=== PATIENT | male | born 1955 | race Caucasian/White ===

== ENCOUNTER → 2021-02-24 13:33 | Outpatient (CLI) | payer MEDICARE, SELFPAY ==
--- NOTE | ~2021-02-24 | XR_ITS ---
XR foot RT min 3V DATE: 02/24/2021 14:18 INDICATION: Right foot pain TECHNIQUE: 4 views COMPARISON: None FINDINGS: There is mild plantar and minimal posterior calcaneal enthesopathy without erosive change o r periostitis. There is osteoarthritis including particular spurring and joint space narrowing at the first metatars ophalangeal joint. No fracture or dislocation, periosteal reaction or bone destruction is detected. IMPRESSION: Osteophyte is at first metatarsophalangeal joint Plantar and minimal posterior calcaneal enthesopathy Reviewed, dictated and finalized at location B. AT TANKER [employer]IVER
== END ==
PROVIDERS: PCP Internal Medicine; Visit Provider Internal Medicine
DX: M77.31 Calcaneal spur, right foot (principal); M19.071 Primary osteoarthritis, right ankle and foot
CPT/HCPCS: 73630

== ENCOUNTER → 2022-01-20 11:18 | Outpatient (CLI) | payer MEDICARE, SELFPAY ==
--- NOTE | ~2022-01-20 | XR_ITS ---
EXAMINATION: XR chest 2V DATE: 01/20/2022 11:29 INDICATION: Shortness of breath and cough TECHNIQUE: PA and lateral views of the chest are obtained. COMPARISON: 12/03/2014 FINDINGS: There are minimal opacities of the lung bases. No pleural effusion or pneumothorax. Cardiom egaly is noted. There is moderate thoracic spondylosis. IMPRESSION: 1. Minimal opacities of the lung bases which could reflect atelectasis versus pneumonia versus pulmon patsy edema. There are two cardiomegaly. Reviewed, dictated and finalized at location F. NG INSTRUCTOR IMPRESSION: 1. Minimal opacities of the lung bases which could reflect atelectasis versus p neumonia versus pulmonary edema. There are two cardiomegaly.
== END ==
PROVIDERS: PCP Nurse Practitioner; Visit Provider Nurse Practitioner
DX: R06.02 Shortness of breath (principal)
CPT/HCPCS: 71046

== ENCOUNTER 2022-02-01 14:30 | Outpatient (CLI) | payer MEDICARE, SELFPAY ==
--- NOTE | 2022-02-02 13:33 | P.PCNPFT_ITS ---
PFT Procedure Performed PFT Procedure Performed Plethysmography (Lung Vol) Diffusing Cap (DLCO) Flow Vol Loop Spirometry w/o Bronchodil PFT Interpretation Lung volumes were measured with the body plethysmography method. Lung volumes are unremarkable. Spirometry showed diminished expiratory flow rates and a d iminished FEV1 to FVC ratio 45%, indicative of obstructive airway disease. No post bronchodilator study was carried out. Lung diffusion capacity is near normal at 72% predicted. The flow volume loop is consistent with obstructive airway disease. Impression: Moderately severe obstructive airway disease. Lung diffusion capacity borderline normal.
== END 2022-02-01 14:31 | disposition home or self-care (01) ==
PROVIDERS: PCP Nurse Practitioner; Visit Provider Nurse Practitioner
DX: R06.02 Shortness of breath (principal); R94.2 Abnormal results of pulmonary function studies
CPT/HCPCS: 94375; 94726; 94729

== ENCOUNTER 2022-02-05 09:32 | Outpatient (CLI) | payer MEDICARE, SELFPAY ==
--- NOTE | 2022-02-05 09:56 | ECHO_ITS ---
Patient Info Name: Mack Galloway Age: 66 years : 1955 Gender: Male Ht: 69 in Wt: 280 lbs BSA: 2.55 m2 HR: 82 bpm BP: 176 / 101 mmHg Technical Quality: Fair Exam Date: 02/05/2022 11:00 AM Exam Location: [facility] Patient Status: Outpatient Admit Date: 02/05/2022 Staff Ordering Physician: Elijah Palm APRN Clinical Systems Educator: Rocío Navas RCS Attending Provider: Elijah Palm APRN Referring Physician: Néstor CHEW; Exam Type: CA echo doppler color flow Study Info Indications - sob cardiomegaly on CXR Complete two-dimensional, color flow and Doppler transthoracic echocardiogram is performed. Summary 1. Complete two-dimensional, color flow and Doppler transthoracic echocardiogram is performed. 2. Left ventricular chamber dimension is mildly enlarged. 3. Left ventricular systolic function is normal, estimated at 55-60%. 4. Left ventricular septal wall motion is abnormal with septal motion related to bundle branch block. 5. The left ventricular diastolic function is grade II diastolic dysfunction. 6. E/e' 11 is mildly elevated. 7. Left atrial chamber dimension is moderately enlarged. 8. Right atrial chamber dimension is moderately enlarged. 9. There is moderate aortic valve sclerosis. 10. The mitral valve has mildly calcified annulus. 11. There is mild mitral valve regurgitation. 12. There is trace tricuspid valve regurgitation. 13. Mild pulmonary hypertension, estimated pulmonary arterial systolic pressure is 48 mmHg. 14. There is mild pulmonic regurgitation. Left Ventricle E/e' 11 is mildly elevated. Left ventricular chamber dimension is mildly enlarged. Left ventricular systolic function is normal, estimated at 55-60%. Left ventricular septal wall motion is abnormal with septal motion related to bundle branch block. The left ventricular diastolic function is grade II diastolic dysfunction. Right Ventricle Right ventricular systolic function is normal and with normal TAPSE 2.4 cm. Right ventricular chamber dimension is normal. Left Atria Left atrial chamber dimension is moderately enlarged. Right Atria Right atrial chamber dimension is moderately enlarged. Aortic Valve The aortic valve is trileaflet. There is moderate aortic valve sclerosis. There is no aortic valve stenosis. There is no aortic valve regurgitation. Pulmonic Valve There is mild pulmonic regurgitation. Mitral Valve The mitral valve has mildly calcified annulus. There is no mitral valve stenosis. There is mild mitral valve regurgitation. Tricuspid Valve There is trace tricuspid valve regurgitation. Mild pulmonary hypertension, estimated pulmonary arterial systolic pressure is 48 mmHg. Pericardium/Pleural There is no pericardial effusion. Inferior Vena Cava Normal inferior vena cava with >50% collapse upon inspiration consistent with normal right atrial pressure, 5 mmHg. Aorta The aortic root size at the sinus of Valsalva is normal. Left Ventricular Outflow Tract Name Value Normal LVOT 2D LVOT Diameter 2.1 cm LVOT Doppler LVOT Peak Gradient 6 mmHg
== END 2022-02-05 09:33 | disposition home or self-care (01) ==
LOC: ANHCARD 09:36
PROVIDERS: PCP Nurse Practitioner; Visit Provider Nurse Practitioner
DX: R06.02 Shortness of breath (principal); I08.3 Combined rheumatic disorders of mitral, aortic and tricuspid valves
CPT/HCPCS: 93306

== ENCOUNTER 2022-02-11 09:11 | Outpatient (CLI) | payer MEDICARE, SELFPAY ==
--- NOTE | 2022-03-11 13:56 | WPDSLEEPSTUD ---
Sleep Study Date of Study: 02/11/22 Ordering Provider: Luis Pino DO Interpreting Physician: Delaney Ibanez MD Sleep Study Type: Polysomnogram Height: 1.75 m Weight: 129.274 kg Body Mass Index: 42.0 Neck Circumference (inches): 20 [place]: 12 Reason for Sleep Study Hypersomnolence Sleep History Mack Galloway is a 66-year-old man with constant snoring that is often loud enough to bother others. Others have witnessed him not breathing at night. He wakes himself during the night when he stops breathing. He has excessive daytime sleepiness. He occasionally awakens at night with heartburn, belching or coughing. He frequently has trouble sleeping with a cold. He occasionally gasp for breath at night. He frequently has breathing problems at night reported to him by others. He occasionally sweats excessively at night. He never notices his heart pounding or beating irregularly at night. He frequently falls asleep during the day, frequently falls asleep involuntarily, never falls asleep while driving. He does not have loss of muscle tone with strong emotion. He does not have daytime difficulties due to excessive sleepiness. He does not feel paralyzed on waking or falling asleep. He does not have vivid dreamlike scenes on waking or falling asleep. He does not feel afraid to go to sleep. He does not have nightmares. He occasionally remembers his dreams. He does not have racing thoughts. He does not have feelings of sadness or depression. He rarely has anxiety. He does not have muscular tension. He does not notice parts of his body jerking. He does not kick at night. He does not have crawling or aching feelings in his legs. He rarely has any kind of leg pain at night. He does not have morning jaw pain. He does not grind his teeth at night. He occasionally is bothered by pain during the day, occasionally awakened by pain at night. He frequently wakes up feeling stiff in the morning with sore achy muscles. He occasionally wakes up with pain in the neck and spine. He has headaches. Normal bedtime is 8:30 p.m. falling asleep within minutes, waking twice at night to use the bathroom. He tries to return to sleep by resting quietly in bed. It may take him up to 1-1/2 hours to return to sleep. His normal wake time is 7:30 a.m.. He keeps a similar schedule on weekends, bedtime is 9:00 p.m. and wake time is 7:00 a.m.. He estimates getting 6 hours of sleep at night. He naps during the day. A short nap lasting 10 or 15 minutes is not refreshing. He is usually drowsy for 3 hours or longer after waking. Habits: No tobacco. Caffeine 2 cups of coffee a day. No alcohol or recreational drugs. [facility] Past Medical History Medical History (Updated 03/11/22 @ 14:28 by Delaney Ibanez MD) Hx of deep venous thrombosis Hyperlipidemia, unspecified Hypertension Impaired glucose tolerance Obstructive sleep apnea Polyarthritis Type 2 diabetes mellitus without complication, without long-term current use of insulin Surgical History Surgical History (Updated 03/11/22 @ 14:11 by Delaney Ibanez MD) S/P hernia surgery Family History Family History Sibling Patient's sister is in good health Mother Family history of diabetes mellitus in first degree relative Family history of heart disease in male family member before age 55 Father Family history of emphysema Other Diabetes mellitus Family history of cardiovascular disease Hypertension Social History Social History (Updated 01/20/22 @ 10:36 by Svetlana Yancey MA) Smoking packs per day: 2 Smoking cigarettes per day: 40.0 Years smoked: 40 Smoking pack-years: 80.00 Smoking status: Former smoker Tobacco type: cigarettes Second hand tobacco smoke exposure: No Smoking end date: 03/07/15 Alcohol intake: never Substance use: never Substance use type: does not use Lack of Transportation: No
[2022-03-11 14:35] VITALS: BMI 42.0
== END 2022-02-12 06:10 | disposition home or self-care (01) ==
LOC: ANHCSM 09:14
PROVIDERS: PCP Nurse Practitioner; Visit Provider Internal Medicine
DX: G47.33 Obstructive sleep apnea (adult) (pediatric) (principal); G47.10 Hypersomnia, unspecified; E78.5 Hyperlipidemia, unspecified; I10 Essential (primary) hypertension; E11.9 Type 2 diabetes mellitus without complications; Z87.891 Personal history of nicotine dependence
CPT/HCPCS: 95810

== ENCOUNTER 2022-03-23 08:52 | Outpatient (CLI) | payer MEDICARE, SELFPAY ==
--- NOTE | 2022-04-15 19:00 | WPDSLEEPSTUD ---
Sleep Study Date of Study: 03/23/22 Ordering Provider: Elijah Palm APRN Interpreting Physician: Delaney Ibanez MD Sleep Study Type: BiPAP Titration Height: 1.73 m Weight: 127.006 kg Body Mass Index: 42.5 Neck Circumference (inches): 20 [place]: 6 Reason for Sleep Study * 02/11/2022 shows severe obstructive sleep apnea with an apnea-hypopnea index of 86.7 with desaturation to 75%.? He presents for a full night PAP titration. Sleep History Mack Galloway is a 67-year-old man with constant snoring that is often loud enough to bother others, and he has had witnessed apneas. He wakes himself during the night when he stops breathing.? He has excessive daytime sleepiness.? He occasionally awakens at night with heartburn, belching or coughing. ? He frequently has trouble sleeping with a cold.? He occasionally gasp for breath at night.? He frequently has breathing problems at night reported to him by others.? He occasionally sweats excessively at night.? He never notices his heart pounding or beating irregularly at night.? He frequently falls asleep during the day, frequently falls asleep involuntarily, never falls asleep while driving.? He does not have loss of muscle tone with strong emotion.? He does not have daytime difficulties due to excessive sleepiness.? He does not feel paralyzed on waking or falling asleep.? He does not have vivid dreamlike scenes on waking or falling asleep.? He does not feel afraid to go to sleep.? He does not have nightmares.? He occasionally remembers his dreams.? He does not have racing thoughts.? He does not have feelings of sadness or depression.? He rarely has anxiety.? He does not have muscular tension.? He does not notice parts of his body jerking.? He does not kick at night.? He does not have crawling or aching feelings in his legs.? He rarely has any kind of leg pain at night.? He does not have morning jaw pain.? He does not grind his teeth at night.? He occasionally is bothered by pain during the day, occasionally awakened by pain at night.? He frequently wakes up feeling stiff in the morning with sore achy muscles.? He occasionally wakes up with pain in the neck and spine.? He has headaches. Normal bedtime is 8:30 p.m. falling asleep within minutes, waking twice at night to use the bathroom.? He tries to return to sleep by resting quietly in bed.? It may take him up to 1-1/2 hours to return to sleep.? His normal wake time is 7:30 a.m..? He keeps a similar schedule on weekends, bedtime is 9:00 p.m. and wake time is 7:00 a.m..? He estimates getting 6 hours of sleep at night. ? He naps during the day.? A short nap lasting 10 or 15 minutes is not refreshing.? He is usually drowsy for 3 hours or longer after waking. Habits: ? No tobacco.? Caffeine 2 cups of coffee a day.? No alcohol or recreational substances. [facility] Past Medical History Medical History COPD (chronic obstructive pulmonary disease) Hx of deep venous thrombosis Hyperlipidemia, unspecified Hypertension Impaired glucose tolerance Obesity Obstructive sleep apnea Personal history of nicotine dependence Polyarthritis Type 2 diabetes mellitus without complication, without long-term current use of insulin Surgical History Surgical History S/P hernia surgery Family History Family History Sibling Patient's sister is in good health Mother Family history of diabetes mellitus in first degree relative Family history of heart disease in male family member before age 55 Father Family history of emphysema Other Diabetes mellitus Family history of cardiovascular disease Hypertension Social History Social History Smoking packs per day: 2 Smoking cigarettes per day: 40.0 Years smoked: 40 Smoking pack-years: 80.00 Smoking status
[2022-04-15 19:30] VITALS: BMI 42.5
== END 2022-03-24 07:28 | disposition home or self-care (01) ==
LOC: ANHCSM 08:53
PROVIDERS: PCP Nurse Practitioner; Visit Provider Nurse Practitioner
DX: G47.33 Obstructive sleep apnea (adult) (pediatric) (principal); E78.5 Hyperlipidemia, unspecified; I10 Essential (primary) hypertension; J44.9 Chronic obstructive pulmonary disease, unspecified; Z86.718 Personal history of other venous thrombosis and embolism; E11.9 Type 2 diabetes mellitus without complications; E66.9 Obesity, unspecified; Z68.41 Body mass index [BMI] 40.0-44.9, adult; Z87.891 Personal history of nicotine dependence
CPT/HCPCS: 95811

== ENCOUNTER 2022-03-24 07:50 | Outpatient (CLI) | payer MEDICARE, SELFPAY ==
[2022-03-24 08:15] LABS: PCO2 ABG 51.8 mmHg (35.0-45.0); PO2 ABG 55.5 mmHg (80.0-100.0); pH ABG 7.393 (7.350-7.450)
[2022-03-24 08:16] LABS: Alveolar/Arterial O2 Gradient 32.2 mmHg; Base Excess ABG 4.4 mEq/l (+/-2.0); HCO3 ABG 30.9 mEq/l (22.0-26.0); Oxygen Content ABG 21.2 %vol (16.0-22.0); Oxygen Saturation ABG 88.3 % (95.0-100.0); Total Hemoglobin 17.2 g/dL (12.0-18.0)
[2022-03-24 08:25] LABS: Oxyhemoglobin 87.9 % THb (90.0-100.0)
[2022-03-24 08:26] LABS: Carboxyhemoglobin 1.3 % THb (0-2.0); Methemoglobin ABG 0.4 %THb (0-1.5); Reduced Hemoglobin 10.4 %THb (0-5.0)
[2022-03-24 08:27] LABS: Device ROOM AIR; Fractional Inspired Oxygen 21 %; Modified Allen's Test Pass; Site Drawn LEFT RADIAL
== END 2022-03-24 07:51 | disposition home or self-care (01) ==
PROVIDERS: PCP Nurse Practitioner; Visit Provider Nurse Practitioner
DX: R09.02 Hypoxemia (principal)
CPT/HCPCS: 36600; 82375; 82805; 83050

== ENCOUNTER 2022-04-02 08:57 | Outpatient (CLI) | payer MEDICARE, SELFPAY ==
--- NOTE | ~2022-04-02 | NM_ITS ---
EXAMINATION: NM rosita stress w perfusion DATE: 04/02/2022 11:51 INDICATION: Diastolic dysfunction. Other ill-defined heart disease. TECHNIQUE: Rest images were obtained following intravenous administration of 8.5 mCi Tc99m tetrofosmi n (Myoview). The patient was infused intravenously with Lexiscan (Regadenoson). Then, 27.7 mCi Tc99m tetrofosmin (Myoview) was administered intravenously, and stress images were obtained. Data was recon structed into short axis and horizontal and vertical long axis SPECT images. Gated SPECT images were also obtained. COMPARISON: None. FINDINGS: There is mild perfusion defect along the mid inferior and mid inferolateral on the stress w hich is more prominent on the rest images and a borderline perfusion defect on the stress but not the rest images at the inferoapical segment. There is normal left ventricular chamber size, wall motion and ejection fraction. Left ventricular ejection fraction measures 66%. IMPRESSION: 1. Mild perfusion defects along the mid inferior and mid inferolateral wall more prominent on the res t images and equivocal mild perfusion defect inferoapical segment which could represent small regions of infarct and mild ischemia respectively or more likely diaphragmatic attenuation artifact. 2. Left ventricular ejection fraction measuring 66%. Reviewed, dictated and finalized at location B. ECTIONAL SERGEANT IMPRESSION: 1. Mild perfusion defects along the mid inferior and mid inferolateral wall mor e prominent on the rest images and equivocal mild perfusion defect inferoapical segment which could represent small regions of infarct and mild ischemia respe ctively or more likely diaphragmatic attenuation artifact. 2. Left ventricular ejection fraction measuring 66%.
--- NOTE | 2022-04-02 09:14 | EST_ITS ---
Patient Info Name: Mack Galloway Age: 67 years : 1955 Gender: Male Ht: 68 in Wt: 280 lbs BSA: 2.53 m2 HR: 77 bpm BP: 141 / 86 mmHg Heart Rhythm: Sinus Rhythm Exam Date: 04/02/2022 9:59 AM Exam Location: [facility] Stress Patient Status: Outpatient Admit Date: 04/02/2022 Staff Ordering Physician: Cam Swan DO Attending Provider: Cam Swan DO Exercise Technologist: Misti Ly CT Exercise Physician: Cam Swan DO Exam Type: CA stress rosita w NM Study Info Indications R06.02 - Shortness of breath A regadenoson stress test was performed. Summary 1. 1. Negative lexiscan stress test for ischemic ST changes by ECG criteria. 2. 2. Baseline hypertension. 3. 3. Nuclear scan to follow and will be reported separately. Please correlate with it. 4. 4. Patient informed of the above results. Protocol: Lexiscan Stress ECG Details Stage: REST Duration (min): 1 min : 5 sec HR (bpm): 80 SBP (mmHg): 141 DBP (mmHg): 86 Stage: REST Duration (min): 7 min : 29 sec HR (bpm): 81 SBP (mmHg): 141 DBP (mmHg): 86 Stage: STAGE 1 Duration (min): 0 min : 59 sec HR (bpm): 96 SBP (mmHg): 153 DBP (mmHg): 72 Stage: RECOVERY Duration (min): 1 min : 0 sec HR (bpm): 100 SBP (mmHg): 153 DBP (mmHg): 72 Stage: RECOVERY Duration (min): 2 min : 0 sec HR (bpm): 96 SBP (mmHg): 153 DBP (mmHg): 72 Stage: RECOVERY Duration (min): 3 min : 0 sec HR (bpm): 91 SBP (mmHg): 130 DBP (mmHg): 72 Stage: RECOVERY Duration (min): 3 min : 12 sec HR (bpm): 94 SBP (mmHg): 130 DBP (mmHg): 72 Rest HR: 81 bpm Peak HR: 100 bpm Rest Sys BP: 141 mmHg Peak Sys BP: 153 mmHg Max Pred HR: 153 bpm % Max Pred HR: 65 % Target HR: 130 bpm Max RPP: 15,300 bpm*mmHg Termination Reason: Completed protocol Cardiac Symptoms: Shortness of breath Total Time: 1 min : 0 sec Rest Koenig BP: 86 mmHg Peak Koenig BP: 72 mmHg Total Dose: 0.4 mg Resting ECG Sinus rhythm, RBBB. Stress ECG No ST changes. Arrhythmias None. Report Signatures
== END 2022-04-02 08:58 | disposition home or self-care (01) ==
PROVIDERS: PCP Internal Medicine; Visit Provider Internal Medicine Cardiovascular Disease
DX: I51.89 Other ill-defined heart diseases (principal)
CPT/HCPCS: 78452; 93017; A9502; J2785

== ENCOUNTER 2022-04-22 07:56 | Outpatient (CLI) | payer MEDICARE, SELFPAY ==
[2022-04-22 08:30] VITALS: PULSE 90; O2SAT 91
[2022-04-22 08:33] VITALS: PULSE 111; O2SAT 86
[2022-04-22 08:34] VITALS: O2SAT 87
[2022-04-22 08:35] VITALS: O2SAT 90
[2022-04-22 08:45] VITALS: PULSE 93; O2SAT 91
--- NOTE | 2022-04-22 09:17 | HOMEO2EVAL ---
Evaluation was performed at [facility] Home Oxygen Evaluation RC: Home Oxygen (O2) Evaluation Start: 04/22/22 09:14 Freq: Status: Active Protocol: RPE Activity Type Activity Date Activity User E-sign Co-sign Detail Recorded Client Recorded Date Recorded By Document 04/22/22 08:30 JADEN [email or web address] 04/22/22 09:17 JADEN Document 04/22/22 08:33 JADEN [email or web address] 04/22/22 09:17 JADEN Document 04/22/22 08:34 JADEN [email or web address] 04/22/22 09:17 JADEN Document 04/22/22 08:35 JADEN [email or web address] 04/22/22 09:17 JADEN Document 04/22/22 08:45 JADEN [email or web address] 04/22/22 09:17 JADEN 04/22/22 04/22/22 04/22/22 08:30 08:33 08:34 Home O2 Evaluation [Oxygen] -Test Phase Resting Exercise Exercise -Oxygen Delivery Room Air Room Air Nasal Cannula -Oxygen Flow Rate (L/min) 1 [Pulse Oximetry] -Pulse Oximetry (90-100 %) 91 86 L 87 L [Pulse Rate] -Pulse Rate (60-100 beats/min) 90 111 H [Exercise] -Ambulation Distance (feet) -Ambulation Distance (meters) [Comments] -Home Oxygen Evaluation Comments [Charges] -Treatment Charges O2 Evaluation - Outpatient 04/22/22 04/22/22 08:35 08:45 Home O2 Evaluation [Oxygen] -Test Phase Exercise Resting -Oxygen Delivery Nasal Cannula Room Air -Oxygen Flow Rate (L/min) 2 [Pulse Oximetry] -Pulse Oximetry (90-100 %) 90 91 [Pulse Rate] -Pulse Rate (60-100 beats/min) 93 [Exercise] -Ambulation Distance (feet) 600 -Ambulation Distance (meters) 182.87 [Comments] -Home Oxygen Evaluation Comments Pt requires 2 Liters O2 with activity [Charges] -Treatment Charges
--- NOTE | 2022-04-22 09:18 | PCRCNOTE ---
Home O2 eval complete. Faxed results to office staff for DME set-up. Pt stated he is in process of getting a home CPAP unit. Noted on fax to use same DME company
== END 2022-04-22 07:57 | disposition home or self-care (01) ==
PROVIDERS: PCP Nurse Practitioner; Visit Provider Physician Assistant
DX: J44.9 Chronic obstructive pulmonary disease, unspecified (principal)
CPT/HCPCS: 94618

== ENCOUNTER 2022-04-22 07:58 | Outpatient (CLI) | payer MEDICARE, SELFPAY ==
--- NOTE | ~2022-04-22 | CT_ITS ---
EXAMINATION: CT diagnostic chest wo con DATE: 04/22/2022 08:59 INDICATION: COPD TECHNIQUE: Computed tomography (CT) of the chest was performed without intravenous contrast. The dose -length product (DLP) was 654.48 mGy-cm. Automated exposure control and iterative reconstruction tech Human [employer] were employed. COMPARISON: 01/15/2015 FINDINGS: There is a stable 4 mm nodule of the right middle lobe. There is a stable 3 mm nodule of th e right lower lobe. No pleural effusion or pneumothorax. There is mild atelectasis of the right lower lobe. No pathologically enlarged thoracic lymph nodes are identified. The heart size is normal. Calc ified coronary artery atherosclerosis is noted. There is mild thoracic spondylosis. IMPRESSION: 1. Mild atelectasis of the right lung. Reviewed, dictated and finalized at location A. RIAL ANALYST
== END 2022-04-22 07:59 | disposition home or self-care (01) ==
PROVIDERS: PCP Nurse Practitioner; Visit Provider Physician Assistant
DX: J44.9 Chronic obstructive pulmonary disease, unspecified (principal); G47.33 Obstructive sleep apnea (adult) (pediatric); Z87.891 Personal history of nicotine dependence; R91.8 Other nonspecific abnormal finding of lung field
CPT/HCPCS: 71250; 94618

== ENCOUNTER 2022-07-16 09:54 | Emergency (ER) | payer MEDICARE, SELFPAY ==
[2022-07-16] VITALS (13 sets, daily range): BP systolic 110–171; BP diastolic 63–102; PULSE 80–184; RESP 11–25; TEMP 36.8; O2SAT 92–97
--- NOTE | ~2022-07-16 | XR_ITS ---
EXAMINATION: XR chest 2V 07/16/2022 10:50 INDICATION: Tachycardia. PROCEDURE: 2 view chest COMPARISON: 01/20/2022 FINDINGS: The lungs are clear. The cardiomediastinal silhouette is within normal limits. There are no pleural effusions. There is no pneumothorax suspected. IMPRESSION: 1: NO ACUTE CARDIOPULMONARY DISEASE. Reviewed, dictated and finalized at location B.
--- NOTE | 2022-07-16 10:04 | ECG_ITS ---
Measurements Intervals [place] Rate: 176 P: HI: 0 QRS: 183 QRSD: 109 T: -14 QT: 256 QTc: 439 Interpretive Statements SUPRAVENTRICULAR TACHYCARDIA LOW QRS VOLTAGE IN PRECORDIAL LEADS INCOMPLETE RIGHT BUNDLE BRANCH BLOCK BORDERLINE ST-T WAVE ABNORMALITY- ANT/INF LEADS BASELINE ARTIFACT- I, II, III, AVR, AVF, V3 ABNORMAL ECG NO PREVIOUS ECG AVAILABLE FOR COMPARISON Electronically Signed On 07-16-2022 10:08:25 CDT by Cam Swan D.O.
--- NOTE | 2022-07-16 10:04 | ECG_ITS ---
Measurements Intervals [place] Rate: 102 P: MI: 0 QRS: 250 QRSD: 110 T: 5 QT: 344 QTc: 450 Interpretive Statements SINUS TACHYCARDIA ATRIAL COUPLET AND FREQUENT ATRIAL PREMATURE COMPLEXES RIGHT AXIS DEVIATION PATTERN CONSISTENT WITH PULMONARY DISEASE INCOMPLETE RIGHT BUNDLE BRANCH BLOCK BASELINE ARTIFACT- I, II, III, AVR, AVF ABNORMAL ECG COMPARED TO ECG 07/16/2022 09:59:35 SINUS TACHYCARDIA NOW PRESENT Electronically Signed On 07-16-2022 10:36:04 CDT by Cam Swan D.O.
[2022-07-16 10:20] LABS: Basophils Absolute Auto 0.1 K/mm3 (0.0-0.1); Basophils Percent Auto 0.9 % (0.2-1.2); Eosinophils Absolute Auto 0.3 K/mm3 (0-0.3); Hematocrit 42.4 % (42.0-52.0); Hemoglobin 14.3 g/dL (14.0-18.0); Immature Granulocyte Absolute 0.06 K/mm3 (0.00-0.031); Immature Granulocyte Percent A 0.7 % (0-0.5); Mean Corpuscular HGB Conc 33.7 g/dl (32-36); Mean Corpuscular Hemoglobin 29.7 pg (26-34); Mean Corpuscular Volume 88.1 fl (80-100); Mean Platelet Volume 10.5 fl (7.4-10.4); Monocytes Absolute Auto 0.9 K/mm3 (0.1-0.6); Monocytes Percent Auto 10.8 % (2.6-8.5); Neutrophils Absolute Auto 5.6 K/mm3 (1.3-6.7); Neutrophils Percent Auto 67.6 % (45.5-73.1); Platelet Count Result 207 k/mm3 (150-375); Red Blood Count 4.81 M/mm3 (4.6-6.20); White Blood Count 8.2 K/mm3 (4.5-10.0)
--- NOTE | 2022-07-16 10:21 | PC.NURSE ---
EDP Mehdi in room. Attempted valsalva maneuver without success, hear rate still in 190s. Per EDP Mehdi verbal order read back, give 6mg Adenosine IVP.
--- NOTE | 2022-07-16 10:25 | PC.NURSE ---
Heart rate increased following initial 6mg Adenosine. 12mg Adenosine given per verbal order read back via EDP Mehdi
[2022-07-16 10:29] LABS: Prothrombin Time 13.6 Seconds (11.1-14.7)
--- NOTE | 2022-07-16 10:29 | ED.ARRPALP ---
HPI - Arrhythmia/Palpitations General Chief Complaint: Arrhythmia/Palpitations Stated Complaint: irregular heart beat. Time Seen by Provider: 07/16/22 10:15 History of Present Illness HPI narrative: 67-year-old male presented the emergency department for evaluation of tachycardia. Patient was at his pulmonology office when he was found to have a heart rate in the 170s. Heart rate remained in the 170s during his entire visit and patient was transferred down to the emergency department. On arrival to the ED patient initial EKG did show evidence of supraventricular tachycardia. Patient states this morning he was having some increased shortness of breath and was breathing heavier but denied any associated chest pain with this. Denies any prior history of coronary disease. Patient does have a stress test back in March does follow-up with Dr. Swan. Related Data Home Medications Medication Instructions Recorded Confirmed aspirin 81 mg tablet,delayed 81 mg PO DAILY 12/14/19 07/16/22 release (Adult Aspirin Regimen) Allergies Allergy/AdvReac Type Severity Reaction Status Date / Time Penicillins Allergy Unknown Unknown Verified 07/16/22 08:53 Review of Systems Review of Systems: All systems reviewed & are unremarkable except as noted in HPI and below PMFSH Past Medical History Medical History COPD (chronic obstructive pulmonary disease) Hx of deep venous thrombosis Hyperlipidemia, unspecified Hypertension Impaired glucose tolerance Obesity Obstructive sleep apnea Personal history of nicotine dependence Polyarthritis Type 2 diabetes mellitus without complication, without long-term current use of insulin Surgical History Surgical History S/P hernia surgery Family History Family History Sibling Patient's sister is in good health Mother Family history of diabetes mellitus in first degree relative Family history of heart disease in male family member before age 55 Father Family history of emphysema Other Diabetes mellitus Family history of cardiovascular disease Hypertension Social History Social History Smoking packs per day: 2 Smoking cigarettes per day: 40.0 Years smoked: 40 Smoking pack-years: 80.00 Smoking status: Former smoker Tobacco type: cigarettes Second hand tobacco smoke exposure: No Smoking end date: 03/07/15 Alcohol intake: never Substance use: never Substance use type: does not use Lack of Transportation: No Lack of Food: Never True Current Housing: I Have Housing Concerned About Future Housing: No Difficulty Paying Gas/Electric Bills: No Difficulty Paying for Meds: No Currently Unemployed: No Education: High School Diploma/GED Difficulty w/ Childcare or Family Care: No Exam Narrative: APPEARANCE: Well appearing, no pain, no distress, well-nourished. HEAD: normocephalic, atraumatic. EYES: PERRLA/EOMI, conjunctivae clear. NOSE: Normal no drainage EARS:TMS clear with good light reflex. THROAT: Pharynx clear, no exudate. NECK: Supple. No adenopathy, no masses. RESPIRATORY: Airway patent, respirations nonlabored. Clear to auscultation bilaterally, no rales, rhonchi, wheezing. CARDIOVASCULAR: Regular rhythm in the 170s ABDOMINAL: Soft, nontender, nondistended, normal bowel sounds MUSCULOSKELETAL: Moves all extremities. Strength/ROM intact, No edema, No calf tenderness. NEURO: Alert. Cranial nerves II through XII intact. Grossly intact SKIN: Warm, dry. Normal Color Course Course Emergency Course: Attempted cardioversion with modified Valsalva without success. Patient was treated with 6 mg of IV Adenocard and did have a brief transition back to a normal sinus. Patient was then treated with 12 mg of IV Adenoca
[2022-07-16 10:30] LABS: Alanine Aminotransferase 28 U/L (6-50); Albumin Level 4.5 g/dL (3.5-5.1); Alkaline Phosphatase 91 U/L (38-126); Anion Gap 9 mmol/L (8-16); Aspartate Amino Transferase 23 U/L (17-59); Bilirubin,Total 0.7 mg/dL (0.2-1.3); Blood Urea Nitrogen 32 mg/dL (9-20); Calcium 9.8 mg/dL (8.4-10.2); Carbon Dioxide 28 mmol/L (22-30); Chloride 100 mmol/L (98-107); Estimated CRCL calculation 96 ml/min; Estimated Glomerular Filt Rate > 60; Glucose 145 mg/dL (65-110); Lipase 98 U/L (23-300); Partial Thromboplastin Time 33.7 SECONDS (22.3-36.8); Potassium 4.6 mmol/L (3.4-5.0); Sodium 137 mmol/L (137-145)
[2022-07-16] MEDS: ASPIRIN 81 MG CHEWABLE TABLET 324 MG PO (10:34)
[2022-07-16] MEDS: METOPROLOL SUCCINATE EXT REL 25 MG TABCR PO (11:19)
== END 2022-07-16 12:10 | disposition home or self-care (01) ==
PROVIDERS: Emergency Provider Emergency Medicine; PCP Internal Medicine
DX: I47.1 Supraventricular tachycardia (principal); R06.02 Shortness of breath; J44.9 Chronic obstructive pulmonary disease, unspecified; E11.9 Type 2 diabetes mellitus without complications; E78.5 Hyperlipidemia, unspecified; I10 Essential (primary) hypertension; G47.33 Obstructive sleep apnea (adult) (pediatric); M19.90 Unspecified osteoarthritis, unspecified site; E66.9 Obesity, unspecified; Z68.41 Body mass index [BMI] 40.0-44.9, adult; Z86.718 Personal history of other venous thrombosis and embolism; Z87.891 Personal history of nicotine dependence; Z79.82 Long term (current) use of aspirin; Z79.84 Long term (current) use of oral hypoglycemic drugs; R00.8 Other abnormalities of heart beat; I49.1 Atrial premature depolarization; I45.10 Unspecified right bundle-branch block; R94.31 Abnormal electrocardiogram [ECG] [EKG]
CPT/HCPCS: 36415; 71046; 80053; 83690; 84484; 85025; 85610; 85730; 93005; 99284; A9270; J0153; J7030

== ENCOUNTER 2022-10-21 08:02 | Outpatient (CLI) | payer MEDICARE, SELFPAY ==
--- NOTE | 2022-10-21 09:17 | PCRCNOTE ---
Home o2 eval not completed, patient resting heart rate 180s. Sent patient to ER, Pulmonary office notified, confirmed with Jc Vivas
== END 2022-10-21 08:03 | disposition home or self-care (01) ==
PROVIDERS: PCP Family Medicine; Visit Provider Physician Assistant
DX: J44.9 Chronic obstructive pulmonary disease, unspecified (principal); Z53.09 Procedure and treatment not carried out because of other contraindication
CPT/HCPCS: 99199

== ENCOUNTER 2022-10-21 09:05 | Emergency (ER) | payer MEDICARE, SELFPAY ==
[2022-10-21] VITALS (25 sets, daily range): BP systolic 101–205; BP diastolic 53–134; PULSE 76–180; RESP 12–31; TEMP 37; O2SAT 93–98
--- NOTE | 2022-10-21 09:14 | ECG_ITS ---
Measurements Intervals [place] Rate: 179 P: [place]: 0 QRS: 163 QRSD: 109 T: -1 QT: 213 QTc: 368 Interpretive Statements SUPRAVENTRICULAR TACHYCARDIA, SUSPECT RAPID ATRIAL FLUTTER RIGHT BUNDLE BRANCH BLOCK [120+ ms QRS DURATION, UPRIGHT V1, 40+ ms S IN I/aVL/V4/V5/V6] LEFT POSTERIOR FASCICULAR BLOCK [QRS AXIS > 109, INFERIOR Q] ABNORMAL ECG COMPARED TO ECG 07/16/2022 10:30:23 RAPID ATRIAL FLUTTER REPLACES SINUS RHYTHM Electronically Signed On 10-21-2022 13:20:35 CDT by Kristofer Germain M.D.
[2022-10-21] MEDS: ADENOSINE IV SOLN 6 MG/2 ML VIAL 18 MG (09:20)
--- NOTE | 2022-10-21 09:28 | ECG_ITS ---
Measurements Intervals [place] Rate: 109 P: [place]: 0 QRS: 233 QRSD: 114 T: 35 QT: 333 QTc: 450 Interpretive Statements SINUS RHYTHM WITH FREQUENT PACS INDETERMINATE AXIS RIGHT BUNDLE BRANCH BLOCK [120+ ms QRS DURATION, UPRIGHT V1, 40+ ms S IN I/aVL/V4/V5/V6] COMPARED TO ECG 10/21/2022 09:12:50 SINUS RHYTHM REPLACES ATRIAL FLUTTER Electronically Signed On 10-21-2022 13:21:27 CDT by Kristofer Germain M.D.
--- NOTE | 2022-10-21 09:28 | ED.ARRPALP ---
HPI - Arrhythmia/Palpitations General Chief Complaint: Arrhythmia/Palpitations <Nely Castorena PA-C - Last Filed: 10/21/22 11:13> Stated Complaint: HEART RATE 180'S FROM PFT LAB <MADELYN Burrell Last Filed: 10/21/22 11:13> Time Seen by Provider: 10/21/22 09:14 <MADELYN Burrell Last Filed: 10/21/22 11:13> Source: patient <MADELYN Burrell Last Filed: 10/21/22 11:13> Mode of arrival: ambulatory <MADELYN Burrell Last Filed: 10/21/22 11:13> Limitations: no limitations <MADELYN Burrell Last Filed: 10/21/22 11:13> History of Present Illness HPI narrative: This is a 67-year-old male that presents to the emergency department for elevated heart rate. 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 He is not overly symptomatic with this. He does report it feels like his heart is fluttering. He also reports some mild nausea. He has had 1 prior episode like this for which she was seen in the emergency department. 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 Denies any chest pain or shortness of breath. <Nely Castorena PA-C - Last Filed: 10/21/22 11:13> Related Data Home Medications: Home Medications Medication Instructions Recorded Confirmed aspirin 81 mg tablet,delayed 81 mg PO DAILY 12/14/19 09/24/22 release (Adult Aspirin Regimen) <Nely Castorena PA-C - Last Filed: 10/21/22 11:13> Allergies/Adverse Reactions: Allergies Allergy/AdvReac Type Severity Reaction Status Date / Time Penicillins Allergy Unknown Unknown Verified 10/21/22 09:27 <MADELYN Burrell Last Filed: 10/21/22 11:13> Review of Systems Review of Systems: CONSTITUTIONAL: Denies fever CARDIOVASCULAR: Reports palpitations. Denies chest pain, or edema. RESPIRATORY: Denies dyspnea. GASTROINTESTINAL: Reports nausea <MADELYN Burrell Last Filed: 10/21/22 11:13> All systems reviewed & are unremarkable except as noted in HPI and below <Nely Castorena PA-C - Last Filed: 10/21/22 11:13> [facility] Past Medical History Medical History: Medical History COPD (chronic obstructive pulmonary disease) Hx of deep venous thrombosis Hyperlipidemia, unspecified Hypertension Impaired glucose tolerance Obesity Obstructive sleep apnea Personal history of nicotine dependence Polyarthritis Type 2 diabetes mellitus without complication, without long-term current use of insulin <Nely Castorena PA-C - Last Filed: 10/21/22 11:13> Surgical History Surgical History: Surgical History S/P hernia surgery <Nely Castorena PA-C - Last Filed: 10/21/22 11:13> Family History Family History: Family History Sibling Patient's sister is in good health Mother Family history of diabetes mellitus in first degree relative Family history of heart disease in male family member before age 55 Father Family history of emphysema Other Diabetes mellitus Family history of cardiovascular disease Hypertension <Nely Castorena PA-C - Last Filed: 10/21/22 11:13> Social History Social History: Social History Smoking packs per day: 2 Smoking cigarettes per day: 40.0 Years smoked: 40 Smoking pack-years: 80.00 Smoking status: Former smoker Tobacco type: cigarettes Second hand tobacco smoke exposure: No Smoking end date: 03/07/15 Alcohol intake: never Substance use: never Substance use type: does not use Lack of Transportation: No Lack of Food: Never True Current Housing: I Have Housing Concerned About Future Housing: No Difficulty Paying Gas/Electric Bills: No Difficulty Paying for Meds: No Currently Unemployed: No Education: High School Diploma/GED
[2022-10-21 10:00] LABS: Basophils Absolute Auto 0.1 K/mm3 (0.0-0.1); Eosinophils Absolute Auto 0.4 K/mm3 (0-0.3); Eosinophils Percent Auto 4.6 % (0-4.4); Hematocrit 41.9 % (42.0-52.0); Hemoglobin 14.1 g/dL (14.0-18.0); Immature Granulocyte Absolute 0.06 K/mm3 (0.00-0.031); Immature Granulocyte Percent A 0.8 % (0-0.5); Lymphocytes Absolute Auto 1.15 K/mm3 (0.9-3.2); Lymphocytes Percent Auto 14.8 % (18.3-44.2); Mean Corpuscular HGB Conc 33.7 g/dl (32-36); Mean Corpuscular Hemoglobin 30.2 pg (26-34); Mean Corpuscular Volume 89.7 fl (80-100); Mean Platelet Volume 10.1 fl (7.4-10.4); Monocytes Absolute Auto 0.6 K/mm3 (0.1-0.6); Monocytes Percent Auto 7.5 % (2.6-8.5); Neutrophils Absolute Auto 5.5 K/mm3 (1.3-6.7); Neutrophils Percent Auto 71.3 % (45.5-73.1); Platelet Count Result 207 k/mm3 (150-375); Red Blood Count 4.67 M/mm3 (4.6-6.20); Red Cell Distribution Width 13.3 % (11.5-14.5); White Blood Count 7.8 K/mm3 (4.5-10.0)
[2022-10-21 10:09] LABS: Alanine Aminotransferase 27 U/L (6-50); Albumin Level 4.5 g/dL (3.5-5.1); Alkaline Phosphatase 94 U/L (38-126); Anion Gap 7 mmol/L (8-16); Aspartate Amino Transferase 22 U/L (17-59); Bilirubin,Total 0.7 mg/dL (0.2-1.3); Blood Urea Nitrogen 24 mg/dL (9-20); Calcium 9.9 mg/dL (8.4-10.2); Carbon Dioxide 24 mmol/L (22-30); Chloride 105 mmol/L (98-107); Estimated CRCL calculation 89 ml/min; Estimated Glomerular Filt Rate > 60; Glucose 111 mg/dL (65-110); Lipase 58 U/L (23-300); Potassium 4.2 mmol/L (3.4-5.0); Prothrombin Time 13.7 Seconds (11.1-14.7); Sodium 136 mmol/L (137-145)
[2022-10-21 10:10] LABS: Partial Thromboplastin Time 31.5 SECONDS (22.3-36.8)
[2022-10-21 10:22] LABS: Troponin I < 0.012 ng/mL (0.000-0.034)
[2022-10-21 10:55] LABS: Magnesium 1.6 mg/dL (1.6-2.3)
== END 2022-10-21 11:32 | disposition home or self-care (01) ==
PROVIDERS: Emergency Provider Physician Assistant; PCP Family Medicine
DX: I47.1 Supraventricular tachycardia (principal); J44.9 Chronic obstructive pulmonary disease, unspecified; E78.5 Hyperlipidemia, unspecified; I10 Essential (primary) hypertension; E11.9 Type 2 diabetes mellitus without complications; Z86.718 Personal history of other venous thrombosis and embolism; Z87.891 Personal history of nicotine dependence
CPT/HCPCS: 36415; 80053; 83690; 83735; 84484; 85025; 85610; 85730; 93005; 99284; J0153

== ENCOUNTER 2023-04-25 12:40 | Outpatient (CLI) | payer MEDICARE, SELFPAY ==
--- NOTE | ~2023-04-25 | CT_ITS ---
CT Scan of the Chest without Contrast: Clinical Indication: Lung cancer screening, personal history of nicotine dependence Technique: Contiguous sections were acquired throughout the chest without intravenous contrast. Dose reduction technique was used on this scan by utilizing automated exposure control and iterative recon struction technique. The dose-length product (DLP) was 476.95 mGy-cm. COMPARISON: 04/22/2022 Findings: There is no evidence of any significant mediastinal, hilar or axillary lymphadenopathy. Coronary amira ry calcifications are present. There is no evidence of pleural or pericardial effusion. Stable 3 mm right lower lobe pulmonary nodule present. There is right basilar scarring or atelectasis . Images through the upper abdomen reveal no abnormalities. Impression: Lung RADS 2: Benign appearance. 12 month follow-up screening CT advised. Reviewed, dictated and finalized at [facility]. OL OFFICER Impression: Lung RADS 2: Benign appearance. 12 month follow-up screening CT advised.
== END 2023-04-25 12:41 | disposition home or self-care (01) ==
PROVIDERS: PCP Family Medicine; Visit Provider Physician Assistant
DX: Z12.2 Encounter for screening for malignant neoplasm of respiratory organs (principal); Z87.891 Personal history of nicotine dependence
CPT/HCPCS: 71271